=== PATIENT | female | born 2000 | race Two or more races ===

== ENCOUNTER → 2024-04-10 | Outpatient (REF) | payer BC | LOC: M SFHCWAGY 17:36 | PROVIDERS: ATTEND Advanced Practice Midwife | DX: Z12.4 Encounter for screening for malignant neoplasm of cervix (principal) ==

== ENCOUNTER 2024-07-03 09:06 | Day surgery (SDC) | payer BC ==
[~2024-07-03] VITALS: Ht 167.6 cm; Wt 63.8 kg
[2024-07-03] MEDS ORDERED: LEVO25TA5 PO (09:17)
[2024-07-03] MEDS ORDERED: PNV1TABL16 PO (09:17)
[2024-07-03] MEDS ORDERED: ROCURONIUM BROMIDE 50MG/5ML VIAL As Ordered ONE (09:35)
[2024-07-03] MEDS ORDERED: MIDAZOLAM INJ 2MG/2ML VIAL As Ordered ONE (09:35)
[2024-07-03] MEDS ORDERED: fentaNYL 100 MCG/2 ML INJECTION As Ordered ONE (09:35)
[2024-07-03] MEDS ORDERED: ONDANSETRON 4MG 2ML VIAL As Ordered ONE (09:36)
[2024-07-03] MEDS ORDERED: ACETAMINOPHEN 1000MG/100ML IV BAG As Ordered ONE (09:36)
[2024-07-03] MEDS ORDERED: propofoL 200 MG/20 ML VIAL As Ordered ONE (09:36)
[2024-07-03] MEDS ORDERED: LIDOCAINE 2% 100MG/5ML SDV (FOR ANES.) As Ordered ONE (09:36)
[2024-07-03 09:48] LABS: BASO % 0.9 % (0.0-1.0); EOS # 0.1 10^3/uL (0.0-0.5); EOS % 1.8 % (0.0-3.0); HEMATOCRIT 40.3 % (36.0-47.0); HEMOGLOBIN 13.7 g/dl (12.0-15.5); LYMPH # 1.7 10^3/uL (1.5-5.0); LYMPH % 37.9 % (24.0-44.0); MEAN CORPUSCULAR HEMOGLOBIN 31.9 pg (27.0-33.0); MEAN CORPUSCULAR VOLUME 93.9 fl (80.0-96.0); MONO # 0.4 10^3/uL (0.0-0.8); MONO % 8.9 % (2.0-8.0); NEUTROPHILS # 2.3 10^3/uL (1.5-8.5); NEUTROPHILS % 50.3 % (36.0-66.0); PLATELET COUNT, AUTOMATED 268 10^3/uL (150-450); RED BLOOD COUNT 4.29 10^6/uL (4.00-5.40); WHITE BLOOD COUNT 4.5 10^3/uL (4.0-10.0)
[2024-07-03] MEDS: LR 1,000 ML IV SCH (10:01)
[2024-07-03] MEDS ORDERED: KETOROLAC 30 MG/ML 1ML VIAL As Ordered ONE (10:50)
[2024-07-03] MEDS ORDERED: SUGAMMADEX SODIUM 500 MG/5 ML VIAL (BRIDION) As Ordered ONE (10:50)
[2024-07-03] MEDS ORDERED: dexmedeTOMIDine (4MCG/ML)200MCG/50ML BTL (PRECEDEX) As Ordered ONE (10:53)
[2024-07-03] MEDS ORDERED: ESMOLOL INJ 100MG/10ML VIAL As Ordered ONE (11:04)
[2024-07-03] MEDS: METHYLENE BLUE 0.5% (5MG/ML) 10 ML AMP (PROVAYBLUE) As Ordered ONE (11:20)
[2024-07-03] MEDS ORDERED: fentaNYL 100 MCG/2 ML INJECTION IV PRN (12:40)
[2024-07-03] MEDS ORDERED: LR 1,000 ML IV SCH (12:40)
[2024-07-03] MEDS: HYDROMORPHONE HCL 0.5 MG/ 0.5 ML SYRINGE IV PRN (12:45)
[2024-07-03] MEDS: ONDANSETRON 4MG 2ML VIAL IV PRN (12:46)
[2024-07-03] MEDS: oxyCODONE 5MG TAB PO PRN (12:46)
[2024-07-03] MEDS: METOCLOPRAMIDE INJ 10MG/2ML VIAL IV STA (14:22)
[2024-07-03 14:40] VITALS: BP 111/59; TEMP 97.5; O2SAT 100
== END 2024-07-03 14:45 | disposition home or self-care (01) ==
LOC: M SDC 09:06
PROVIDERS: ATTEND Obstetrics & Gynecology
DX: N70.11 Chronic salpingitis (principal); N97.9 Female infertility, unspecified; N83.8 Other noninflammatory disorders of ovary, fallopian tube and broad ligament; N83.291 Other ovarian cyst, right side
CPT/HCPCS: 36415; 58350; 58662; 81025; 85025; 86850; 88305; J0131; J0665; J1100; J1171; J1805; J1885; J2250; J2405; J2765; J3010; Q9968

== ENCOUNTER 2024-10-18 17:09 | Day surgery (SDC) | payer BC ==
[~2024-10-18] VITALS: Ht 167.6 cm; Wt 62.8 kg
[~2024-10-18 17:09] MED LIST: LEVO25TA5 PO; PNV1TABL16 PO
[2024-10-18] MEDS: KETOROLAC 30 MG/ML 1 ML VIAL IV ONE (17:35)
[2024-10-18 17:40] LABS: BASO # 0.0 10^3/uL (0.0-0.2); BASO % 0.8 % (0.0-1.0); EOS # 0.0 10^3/uL (0.0-0.5); EOS % 0.6 % (0.0-3.0); LYMPH # 1.0 10^3/uL (1.5-5.0); LYMPH % 18.1 % (24.0-44.0); MONO # 0.0 10^3/uL (0.0-0.8); MONO % 0.6 % (2.0-8.0); NEUTROPHILS # 4.2 10^3/uL (1.5-8.5); NEUTROPHILS % 79.5 % (36.0-66.0); PLATELET COUNT, AUTOMATED 181 10^3/uL (150-450)
[2024-10-18] MEDS: NS (Normal Saline) 0.9% 1,000 ML IV ONE ×2 (17:42→18:42)
[2024-10-18] MEDS ORDERED: ISOVUE-370 76% 100 ML VIAL As Ordered ONE (17:50)
[2024-10-18 18:03] LABS: HCG, SERUM QUANTITATIVE 6.9 MIU/ML (<4.2)
[2024-10-18 18:05] LABS: ALT/SGPT 28 U/L (7.0-40); AST/SGOT 40 U/L (<34); CALCIUM LEVEL 9.3 MG/DL (8.5-10.1); CARBON DIOXIDE LEVEL 20 MMOL/L (20-31); CHLORIDE LEVEL 102 MMOL/L (98-107); CREATININE FOR GFR 0.78 MG/DL (0.55-1.30); GLOMERULAR FILTRATION RATE > 90.0 (>60); POTASSIUM SERUM 4.6 MMOL/L (3.5-5.1); SODIUM LEVEL 140 MMOL/L (136-145)
[2024-10-18] MEDS ORDERED: ACET-907 PO (18:56)
[2024-10-18] MEDS ORDERED: ONDA-284 PO (18:56)
[2024-10-18] MEDS ORDERED: INOS650T3 PO (18:56)
[2024-10-18] MEDS ORDERED: LEVO50TA5 PO (18:58)
[2024-10-18] MEDS ORDERED: ACETAMINOPHEN 500 MG TAB PO ONE (19:05)
[2024-10-18] MEDS: ACETAMINOPHEN *IV* 1,000 MG in IV 1 EA IV ONE (19:18)
[2024-10-18] MEDS: PIPERACILLIN/TAZOBACTAM SOD 3.375 GM in DEXTROSE 5% (D5W) ADV/MINI-BAG 50 ML IV ONE (20:10)
[2024-10-18] MEDS ORDERED: ROCURONIUM BROMIDE 50MG/5ML VIAL As Ordered ONE (20:37)
[2024-10-18] MEDS ORDERED: LIDOCAINE 2% 100 MG/5 ML SDV (FOR ANES.) As Ordered ONE (20:37)
[2024-10-18] MEDS ORDERED: MIDAZOLAM INJ 2 MG/2 ML VIAL As Ordered ONE (20:38)
[2024-10-18 20:40] LABS: KETONE, URINE AUTO RFX 1+ mg/dL (NEGATIVE); LEUKOCYTE ESTERASE UR AUTO RFX NEGATIVE (NEGATIVE); MUCUS, URINE RFX SMALL (NEGATIVE); NITRITE, URINE AUTO RFX NEGATIVE (NEGATIVE); RBC, URINE AUTO RFX 0 /HPF (0-3); SQUAM EPITHELIAL CELL UR AURFX 0 /HPF (0-6); WBC, URINE AUTO RFX 1 /HPF (0-3)
[2024-10-18] MEDS ORDERED: SUCCINYLCHOLINE 100MG/5ML SYRINGE As Ordered ONE (21:13)
[2024-10-18] MEDS ORDERED: dexAMETHasone 4 MG/ML 1 ML VIAL As Ordered ONE (21:24)
[2024-10-18] MEDS ORDERED: ONDANSETRON 4MG 2ML VIAL As Ordered ONE (21:24)
[2024-10-18] MEDS ORDERED: SUGAMMADEX SODIUM 500 MG/5 ML VIAL As Ordered ONE (21:43)
[2024-10-18] MEDS ORDERED: MORPHINE 2 MG/ML 1 ML VIAL IV PRN ×3 (22:15→23:00)
[2024-10-18] MEDS: NS (Normal Saline) 0.9% 1,000 ML IV SCH (22:15)
[2024-10-18] MEDS ORDERED: HYDROMORPHONE HCL 0.5 MG/0.5 ML SYRINGE IV PRN (22:20)
[2024-10-18] MEDS ORDERED: ONDANSETRON 4MG 2ML VIAL IV PRN (22:20)
[2024-10-18] MEDS ORDERED: PROMETHAZINE 25MG/ML 1ML VIAL IV PRN (22:20)
[2024-10-18] MEDS ORDERED: MEPERIDINE 25 MG/ML 1 ML VIAL IV PRN (22:20)
[2024-10-18] MEDS ORDERED: MORPHINE 4 MG/ML 1 ML VIAL IV PRN (23:00)
[2024-10-18 23:10] VITALS: BP 107/71; TEMP 98.8; O2SAT 99
[2024-10-18 23:30] VITALS: BP 112/69; TEMP 98.8; O2SAT 97
[2024-10-18] MEDS: KETOROLAC 30 MG/ML 1 ML VIAL IV SCH (23:51)
[2024-10-19] VITALS: BP 108/72; TEMP 98.4; O2SAT 98
[2024-10-19] MEDS ORDERED: PROMETHAZINE 25MG/ML 1ML VIAL IV PRN
[2024-10-19 01:00] VITALS: BP 109/67; TEMP 98; O2SAT 98
[2024-10-19 02:00] VITALS: BP 110/65; TEMP 97.7; O2SAT 99
[2024-10-19] MEDS: PIPERACILLIN/TAZOBACTAM SOD 3.375 GM in DEXTROSE 5% (D5W) ADV/MINI-BAG 50 ML IV SCH (02:03)
[2024-10-19 03:00] VITALS: BP 104/57; TEMP 98.6; O2SAT 98
[2024-10-19 04:00] VITALS: BP 109/54; TEMP 98; O2SAT 98
[2024-10-19] MEDS ORDERED: ONDANSETRON 4MG 2ML VIAL IV PRN (04:00)
[2024-10-19] MEDS ORDERED: AMOX500T2 PO (11:13)
[2024-10-19 12:00] VITALS: BP_SYST 97; BP_SYST 99; BP_DIAS 54; BP_DIAS 57; TEMP 98.5; TEMP 98.9; O2SAT 97; O2SAT 99
[2024-10-19] MEDS: ACETAMINOPHEN 325 MG TAB PO PRN (14:24)
== END 2024-10-19 14:55 | disposition home or self-care (01) ==
LOC: M ED 17:09 → M SDC 17:10 → M PED 22:19 → M SDC 10-19 14:55
PROVIDERS: ATTEND Surgery
DX: K35.890 Other acute appendicitis without perforation or gangrene (principal); E03.9 Hypothyroidism, unspecified; E28.2 Polycystic ovarian syndrome; Z79.899 Other long term (current) drug therapy; Z79.890 Hormone replacement therapy
CPT/HCPCS: 36415; 44970; 74177; 76801; 76817; 80047; 80053; 81001; 83605; 83690; 84702; 85025; 88304; 93976; 96365; 96375; 96376; 99285; J0131; J0665; J1100; J1885; J2250; J2405; J2543; J3010; Q9967

== ENCOUNTER → 2024-10-24 | Outpatient (CLI) | payer BC ==
[~2024-10-24] MED LIST changes: +ACET-907 PO; +AMOX500T2 PO; +INOS650T3 PO; +LEVO50TA5 PO; +ONDA-284 PO
[2024-10-24 11:42] LABS: HCG, SERUM QUANTITATIVE < 2.6 MIU/ML (<4.2)
== END ==
LOC: M LAB 10:37
DX: E03.9 Hypothyroidism, unspecified (principal); Z32.00 Encounter for pregnancy test, result unknown

== ENCOUNTER → 2025-03-25 | Outpatient (CLI) | payer BC | LOC: M LAB 10:30 | DX: Z32.00 Encounter for pregnancy test, result unknown (principal); E03.9 Hypothyroidism, unspecified ==